=== PATIENT | female | born 1950 ===

== ENCOUNTER 2017-12-07 09:00 | Inpatient (IN) | payer OTHER ==
[~2017-12-07] VITALS: Ht 154.9 cm; Wt 102.1 kg
[~2017-12-07 09:00] MED LIST: ADVAIR 100-501 EACH IH; METFORMIN HCL500 MG PO; SYNTHROID112 MCG PO; THEODUR PO; [UNRECOGNIZED DRUG - OTHER] PO
[2017-12-07] MEDS ORDERED: GABAPENTIN100 MG PO (12:36)
[2017-12-07] MEDS ORDERED: ASA81 MG PO (12:37)
[2017-12-07] MEDS ORDERED: ZESTRIL10 M1 PO (12:37)
== END 2017-12-18 13:18 | disposition home health service (06) | DRG 470 ==
LOC: SURG 12-16 05:30 → O/R 12-16 05:30 → SURG 12-16 07:00
PROVIDERS: Orthopaedic Surgery
PROC: 0SRC0J9 Replacement of Right Knee Joint with Synthetic Substitute, Cemented, Open Approach (ICD-10-PCS; principal; 2017-12-16 07:00)
DX: M17.11 Unilateral primary osteoarthritis, right knee (principal); E11.9 Type 2 diabetes mellitus without complications; I10 Essential (primary) hypertension; E03.8 Other specified hypothyroidism